=== PATIENT | female | born 1940 | race Caucasian/White ===

== ENCOUNTER 2021-09-17 16:50 | Inpatient (IN) | payer OTHER, MEDICAID ==
[~2021-09-17] VITALS: Ht 160 cm; Wt 84.8 kg
[2021-09-17 16:52] VITALS: BP_SYST 138
[2021-09-17 17:25] LABS: BASOPHILS # (AUTO) 0.1 K/uL (0.0-0.2); BASOPHILS % (AUTO) 0.7 % (0.0-2.0); EOSINOPHILS # (AUTO) 0.5 K/uL (0.0-0.4); EOSINOPHILS % (AUTO) 5.2 % (0.0-4.0); HEMATOCRIT 34.3 % (36-48); HEMOGLOBIN 11.4 g/dL (12.0-16.0); LYMPHOCYTES # (AUTO) 3.4 K/uL (1.0-5.5); MEAN CORPUSCULAR HEMOGLOBIN 32 pg (27-31); MEAN CORPUSCULAR HGB CONC 33 % (32-36); MEAN CORPUSCULAR VOLUME 97 fL (79.0-98.0); MONOCYTES # (AUTO) 0.9 K/uL (0.0-1.0); MONOCYTES % (AUTO) 9.7 % (1.7-9.3); NEUTROPHILS # (AUTO) 4.7 K/uL (1.8-7.7); NEUTROPHILS % (AUTO) 49.4 % (40.0-70.0); PLATELET COUNT (AUTO) 217 K/uL (130-430); RED BLOOD CELL COUNT(AUTO) 3.55 MIL/uL (4.2-6.2); RED CELL DISTRIBUTION WIDTH 14.1 % (9.0-15.0); WHITE BLOOD COUNT (AUTO) 9.6 K/uL (4.8-10.8)
[2021-09-17 17:48] LABS: ANION GAP 8 (5-15); CALCIUM 9.5 mg/dL (8.4-11.0); CHLORIDE 96 mmol/L (98-107); CREATININE 5.52 mg/dL (0.55-1.30); GLUCOSE 126 mg/dL (70-99); POTASSIUM 3.9 mmol/L (3.5-5.1); SODIUM SERUM 135 mmol/L (136-145); UREA NITROGEN, BLOOD 31 mg/dL (8-21)
[2021-09-17 17:57] LABS: ALANINE AMINOTRANSFERASE 16 U/L (12-78); ALBUMIN 2.8 g/dL (3.4-4.8); ASPARTATE AMINOTRANSFERASE 17 U/L (10-37); TOTAL BILIRUBIN 0.1 mg/dL (0.0-1.0)
[2021-09-17] MEDS ORDERED: HYDR-3917 PO (18:10)
[2021-09-17] MEDS ORDERED: REN800 PO (18:10)
[2021-09-17] MEDS ORDERED: SSREG SUBCUT (18:10)
[2021-09-17] MEDS ORDERED: MIDO5TAB4 PO (18:10)
[2021-09-17] MEDS ORDERED: SSNPH SQ (18:10)
[2021-09-17] MEDS ORDERED: SIMV40TA2 PO (18:10)
[2021-09-17] MEDS ORDERED: CARV12.548 PO (18:10)
[2021-09-17] MEDS ORDERED: CALC-1085 PO (18:10)
[2021-09-17] MEDS ORDERED: NIAC250T18 PO (18:10)
[2021-09-17] MEDS ORDERED: INSU100V9 SQ (18:10)
[2021-09-17] MEDS ORDERED: ASPI-1393 PO (18:10)
[2021-09-17] MEDS ORDERED: APIX2.5T PO (18:10)
[2021-09-17] MEDS ORDERED: NPH,100I SQ (18:10)
[2021-09-17] MEDS ORDERED: NOR10 PO (18:10)
[2021-09-17] MEDS ORDERED: DOXA4TAB2 PO (18:10)
[2021-09-17] MEDS ORDERED: LEVO75TA7 PO (18:10)
[2021-09-17] MEDS ORDERED: PANTOPRAZOLE SODIUM 40 MG/VIAL (PROTONIX) IVP ONE (18:15)
[2021-09-17] MEDS ORDERED: NACL 0.9% 1,000 ML IV ONE (18:15)
[2021-09-17] MEDS ORDERED: DEXTROSE 50% JECT 50 ML DISP.SYRIN IVP PRN (20:15)
[2021-09-17] MEDS ORDERED: ALBUTEROL SULFATE 0.083% 2.5 MG/3 ML VIAL.NEB INH PRN (20:15)
[2021-09-17] MEDS ORDERED: IPRATROPIUM BROM 0.5 MG/2.5 ML VIAL.NEB (ATROVENT) INH PRN (20:15)
[2021-09-17 20:18] VITALS: BP_SYST 138
[2021-09-17 21:00] VITALS: BP_SYST 98
[2021-09-17] MEDS: CARVEDILOL 12.5 MG TABLET (COREG) PO SCH (21:00)
[2021-09-17] MEDS: SIMVASTATIN 40 MG TABLET PO SCH (21:00)
[2021-09-17] MEDS: APIXABAN 2.5 MG TABLET PO SCH (21:00)
[2021-09-17] MEDS ORDERED: cefTRIAXone 1 GM VIAL ONE (21:58)
[2021-09-17] MEDS: D5/0.45 NS 1,000 ML IV SCH (22:37)
[2021-09-18] MEDS: PANTOPRAZOLE SODIUM 40 MG/VIAL (PROTONIX) IVP SCH ×4 (00:31→18:27)
[2021-09-18 00:48] LABS: HEMATOCRIT 33.3 % (36-48)
[2021-09-18 01:21] VITALS: BP_SYST 118
[2021-09-18 07:02] LABS: HEMATOCRIT 32.7 % (36-48); HEMOGLOBIN 10.7 g/dL (12.0-16.0)
[2021-09-18 08:30] VITALS: BP_SYST 123
[2021-09-18] MEDS ORDERED: ASPIRIN 81 MG TABLET(ECOTRIN) PO SCH (09:00)
[2021-09-18] MEDS: NIACIN 100 MG TABLET PO SCH (09:00)
[2021-09-18] MEDS: CALCIUM CARBONATE/VITAMIN D3 1 TAB TABLET PO SCH (09:50)
[2021-09-18] MEDS: APIXABAN 2.5 MG TABLET PO SCH (09:50)
[2021-09-18] MEDS: MIDODRINE HCL 5 MG TABLET (PROAMATINE) PO SCH (09:51)
[2021-09-18] MEDS: amLODIPine BESYLATE 10 MG TABLET PO SCH (09:51)
[2021-09-18] MEDS: LEVOTHYROXINE SODIUM 0.075 MG TABLET PO SCH (09:52)
[2021-09-18] MEDS: DOXAZOSIN MESYLATE 2 MG TABLET PO SCH (09:52)
[2021-09-18] MEDS: D5/0.45 NS 1,000 ML IV SCH ×2 (10:03→21:46)
[2021-09-18 13:10] VITALS: BP_SYST 123
[2021-09-18 13:55] LABS: HEMATOCRIT 34.1 % (36-48); HEMOGLOBIN 11.4 g/dL (12.0-16.0)
[2021-09-18 17:47] VITALS: BP_SYST 133
[2021-09-18] MEDS: EPOETIN ALFA-EPBX 4,000 UNITS/ML VIAL SUBCUT SCH (18:28)
[2021-09-18] MEDS: INSULIN REGULAR, HUMAN 100 UNITS/ML, 10 ML VIAL (humuLIN R) SUBCUT PRN (18:40)
[2021-09-18 18:47] LABS: HEMATOCRIT 34.5 % (36-48); HEMOGLOBIN 11.2 g/dL (12.0-16.0)
[2021-09-18 21:44] VITALS: BP_SYST 129
[2021-09-18] MEDS: CARVEDILOL 12.5 MG TABLET (COREG) PO SCH (21:45)
[2021-09-18] MEDS: SIMVASTATIN 40 MG TABLET PO SCH (21:45)
[2021-09-19 00:18] VITALS: BP_SYST 126
[2021-09-19] MEDS: PANTOPRAZOLE SODIUM 40 MG/VIAL (PROTONIX) IVP SCH ×5 (01:32→23:37)
[2021-09-19] MEDS: INSULIN REGULAR, HUMAN 100 UNITS/ML, 10 ML VIAL (humuLIN R) SUBCUT PRN ×4 (01:36→23:45)
[2021-09-19] MEDS: ALBUTEROL SULFATE 0.083% 2.5 MG/3 ML VIAL.NEB INH SCH ×5 (07:00→23:00)
[2021-09-19] MEDS: IPRATROPIUM BROM 0.5 MG/2.5 ML VIAL.NEB (ATROVENT) INH SCH ×5 (07:00→23:00)
[2021-09-19 07:14] LABS: HEMATOCRIT 34.1 % (36-48); HEMOGLOBIN 11.1 g/dL (12.0-16.0)
[2021-09-19 08:13] LABS: ALANINE AMINOTRANSFERASE 13 U/L (12-78); ALBUMIN 2.4 g/dL (3.4-4.8); ANION GAP 10 (5-15); ASPARTATE AMINOTRANSFERASE 13 U/L (10-37); CALCIUM 8.6 mg/dL (8.4-11.0); CHLORIDE 94 mmol/L (98-107); GLUCOSE 202 mg/dL (70-99); PHOSPHORUS 5.1 mg/dL (2.7-4.5); SODIUM SERUM 130 mmol/L (136-145); UREA NITROGEN, BLOOD 46 mg/dL (8-21)
[2021-09-19 08:30] VITALS: BP_SYST 134
[2021-09-19 08:39] LABS: CREATININE 7.53 mg/dL (0.55-1.30)
[2021-09-19 08:57] LABS: TOTAL BILIRUBIN 0.2 mg/dL (0.0-1.0)
[2021-09-19] MEDS: NIACIN 100 MG TABLET PO SCH (09:00)
[2021-09-19] MEDS: BALSAM PERU/CASTOR OIL 56.7 GM OINT...G. TP SCH (09:00)
[2021-09-19] MEDS: D5/0.45 NS 1,000 ML IV SCH (11:15)
[2021-09-19 12:55] VITALS: BP_SYST 130
[2021-09-19 16:50] VITALS: BP_SYST 132
[2021-09-19] MEDS: amLODIPine BESYLATE 10 MG TABLET PO SCH (17:15)
[2021-09-19] MEDS: CALCIUM CARBONATE/VITAMIN D3 1 TAB TABLET PO SCH (17:15)
[2021-09-19] MEDS: DOXAZOSIN MESYLATE 2 MG TABLET PO SCH (17:16)
[2021-09-19] MEDS: LEVOTHYROXINE SODIUM 0.075 MG TABLET PO SCH (17:27)
[2021-09-19 21:28] VITALS: BP_SYST 124
[2021-09-19] MEDS: SIMVASTATIN 40 MG TABLET PO SCH (21:28)
[2021-09-19] MEDS: CARVEDILOL 12.5 MG TABLET (COREG) PO SCH (21:28)
[2021-09-20 00:42] VITALS: BP_SYST 121
[2021-09-20] MEDS: ALBUTEROL SULFATE 0.083% 2.5 MG/3 ML VIAL.NEB INH SCH ×4 (03:00→15:00)
[2021-09-20] MEDS: IPRATROPIUM BROM 0.5 MG/2.5 ML VIAL.NEB (ATROVENT) INH SCH ×4 (03:00→15:00)
[2021-09-20] MEDS: D5/0.45 NS 1,000 ML IV SCH ×2 (05:52→17:45)
[2021-09-20] MEDS: PANTOPRAZOLE SODIUM 40 MG/VIAL (PROTONIX) IVP SCH ×3 (05:52→18:26)
[2021-09-20] MEDS: INSULIN REGULAR, HUMAN 100 UNITS/ML, 10 ML VIAL (humuLIN R) SUBCUT PRN ×3 (06:14→18:15)
[2021-09-20] MEDS ORDERED: ALBUTEROL MDI INHALATION 8 GM INH INH PRN (07:45)
[2021-09-20 08:00] VITALS: BP_SYST 141
[2021-09-20] MEDS: NIACIN 100 MG TABLET PO SCH (09:00)
[2021-09-20] MEDS: CALCIUM CARBONATE/VITAMIN D3 1 TAB TABLET PO SCH (09:48)
[2021-09-20] MEDS: amLODIPine BESYLATE 10 MG TABLET PO SCH (09:49)
[2021-09-20] MEDS: LEVOTHYROXINE SODIUM 0.075 MG TABLET PO SCH (09:51)
[2021-09-20] MEDS: MIDODRINE HCL 5 MG TABLET (PROAMATINE) PO SCH (09:51)
[2021-09-20] MEDS: DOXAZOSIN MESYLATE 2 MG TABLET PO SCH (09:51)
[2021-09-20] MEDS: BALSAM PERU/CASTOR OIL 56.7 GM OINT...G. TP SCH (09:55)
[2021-09-20 11:33] VITALS: BP_SYST 134
[2021-09-20 12:05] VITALS: BP_SYST 134
[2021-09-20] MEDS ORDERED: PRO40 PO (12:17)
[2021-09-20 15:23] VITALS: BP_SYST 113
[2021-09-20] MEDS: EPOETIN ALFA-EPBX 4,000 UNITS/ML VIAL SUBCUT SCH (18:30)
[2021-09-20] MEDS: SIMVASTATIN 40 MG TABLET PO SCH (21:50)
[2021-09-20 21:55] VITALS: BP_SYST 122
[2021-09-20] MEDS: CARVEDILOL 12.5 MG TABLET (COREG) PO SCH (21:57)
[2021-09-21] MEDS: PANTOPRAZOLE SODIUM 40 MG/VIAL (PROTONIX) IVP SCH ×4 (00:08→17:58)
[2021-09-21] MEDS: INSULIN REGULAR, HUMAN 100 UNITS/ML, 10 ML VIAL (humuLIN R) SUBCUT PRN ×4 (00:22→18:01)
[2021-09-21 00:23] VITALS: BP_SYST 124
[2021-09-21 06:30] LABS: BASOPHILS % (AUTO) 0.5 % (0.0-2.0); EOSINOPHILS # (AUTO) 0.5 K/uL (0.0-0.4); EOSINOPHILS % (AUTO) 6.2 % (0.0-4.0); HEMATOCRIT 30.8 % (36-48); HEMOGLOBIN 10.3 g/dL (12.0-16.0); LYMPHOCYTES # (AUTO) 2.6 K/uL (1.0-5.5); MEAN CORPUSCULAR HEMOGLOBIN 32 pg (27-31); MEAN CORPUSCULAR HGB CONC 33 % (32-36); MEAN CORPUSCULAR VOLUME 97 fL (79.0-98.0); MONOCYTES # (AUTO) 0.8 K/uL (0.0-1.0); MONOCYTES % (AUTO) 10.3 % (1.7-9.3); PLATELET COUNT (AUTO) 181 K/uL (130-430); RED BLOOD CELL COUNT(AUTO) 3.17 MIL/uL (4.2-6.2); RED CELL DISTRIBUTION WIDTH 13.9 % (9.0-15.0)
[2021-09-21 07:55] LABS: ANION GAP 10 (5-15); C-REACTIVE PROTEIN QUANT 0.8 mg/dL (0-0.5); CALCIUM 7.9 mg/dL (8.4-11.0); CHLORIDE 96 mmol/L (98-107); GLUCOSE 225 mg/dL (70-99); PHOSPHORUS 3.9 mg/dL (2.7-4.5); POTASSIUM 4.3 mmol/L (3.5-5.1); SODIUM SERUM 132 mmol/L (136-145); UREA NITROGEN, BLOOD 43 mg/dL (8-21)
[2021-09-21 08:00] VITALS: BP_SYST 119
[2021-09-21] MEDS: ALBUTEROL MDI INHALATION 8 GM INH INH SCH ×5 (08:06→22:04)
[2021-09-21 08:10] LABS: CREATININE 8.06 mg/dL (0.55-1.30)
[2021-09-21] MEDS: NIACIN 100 MG TABLET PO SCH ×2 (09:00→18:45)
[2021-09-21] MEDS: CALCIUM CARBONATE/VITAMIN D3 1 TAB TABLET PO SCH (09:48)
[2021-09-21 09:49] LABS: ERYTHROCYTE SEDIMENTATION RATE 53 MM/HR (0-20)
[2021-09-21] MEDS: DOXAZOSIN MESYLATE 2 MG TABLET PO SCH (09:50)
[2021-09-21] MEDS: D5/0.45 NS 1,000 ML IV SCH (09:51)
[2021-09-21] MEDS: amLODIPine BESYLATE 10 MG TABLET PO SCH (09:51)
[2021-09-21] MEDS: LEVOTHYROXINE SODIUM 0.075 MG TABLET PO SCH (09:51)
[2021-09-21] MEDS: BALSAM PERU/CASTOR OIL 56.7 GM OINT...G. TP SCH (09:52)
[2021-09-21 11:24] VITALS: BP_SYST 129
[2021-09-21] MEDS: NORMAL SALINE 5 ML DISP.SYRIN IVF SCH (14:00)
[2021-09-21 15:25] VITALS: BP_SYST 143
[2021-09-21 20:00] VITALS: BP_SYST 146
[2021-09-21] MEDS: SIMVASTATIN 40 MG TABLET PO SCH (20:53)
[2021-09-21] MEDS: CARVEDILOL 12.5 MG TABLET (COREG) PO SCH (20:53)
[2021-09-22] MEDS: NORMAL SALINE 5 ML DISP.SYRIN IVF SCH ×3 (00:10→21:45)
[2021-09-22] MEDS: PANTOPRAZOLE SODIUM 40 MG/VIAL (PROTONIX) IVP SCH ×3 (00:17→23:42)
[2021-09-22] MEDS: INSULIN REGULAR, HUMAN 100 UNITS/ML, 10 ML VIAL (humuLIN R) SUBCUT PRN ×3 (00:17→23:49)
[2021-09-22 00:41] VITALS: BP_SYST 141
[2021-09-22] MEDS: ALBUTEROL MDI INHALATION 8 GM INH INH SCH ×5 (06:00→22:00)
[2021-09-22 06:48] LABS: BASOPHILS # (AUTO) 0.1 K/uL (0.0-0.2); BASOPHILS % (AUTO) 0.6 % (0.0-2.0); EOSINOPHILS # (AUTO) 0.7 K/uL (0.0-0.4); EOSINOPHILS % (AUTO) 7.3 % (0.0-4.0); HEMATOCRIT 30.3 % (36-48); LYMPHOCYTES # (AUTO) 2.9 K/uL (1.0-5.5); MEAN CORPUSCULAR HEMOGLOBIN 32 pg (27-31); MEAN CORPUSCULAR HGB CONC 33 % (32-36); MEAN CORPUSCULAR VOLUME 97 fL (79.0-98.0); MONOCYTES # (AUTO) 0.9 K/uL (0.0-1.0); MONOCYTES % (AUTO) 9.8 % (1.7-9.3); NEUTROPHILS # (AUTO) 4.6 K/uL (1.8-7.7); NEUTROPHILS % (AUTO) 50.3 % (40.0-70.0); PLATELET COUNT (AUTO) 184 K/uL (130-430); RED BLOOD CELL COUNT(AUTO) 3.11 MIL/uL (4.2-6.2); RED CELL DISTRIBUTION WIDTH 13.7 % (9.0-15.0); WHITE BLOOD COUNT (AUTO) 9.2 K/uL (4.8-10.8)
[2021-09-22 08:44] LABS: ALANINE AMINOTRANSFERASE 11 U/L (12-78); ALBUMIN 2.3 g/dL (3.4-4.8); ANION GAP 13 (5-15); ASPARTATE AMINOTRANSFERASE 8 U/L (10-37); C-REACTIVE PROTEIN QUANT 0.8 mg/dL (0-0.5); CALCIUM 7.8 mg/dL (8.4-11.0); CHLORIDE 94 mmol/L (98-107); GLUCOSE 190 mg/dL (70-99); PHOSPHORUS 5.3 mg/dL (2.7-4.5); POTASSIUM 4.9 mmol/L (3.5-5.1); SODIUM SERUM 131 mmol/L (136-145); TOTAL BILIRUBIN 0.2 mg/dL (0.0-1.0); UREA NITROGEN, BLOOD 59 mg/dL (8-21)
[2021-09-22 09:00] LABS: CREATININE 9.91 mg/dL (0.55-1.30)
[2021-09-22] MEDS: MIDODRINE HCL 5 MG TABLET (PROAMATINE) PO SCH (09:00)
[2021-09-22] MEDS: amLODIPine BESYLATE 10 MG TABLET PO SCH (09:00)
[2021-09-22 09:06] LABS: ERYTHROCYTE SEDIMENTATION RATE 46 MM/HR (0-20)
[2021-09-22 11:23] VITALS: BP_SYST 149
[2021-09-22 15:24] VITALS: BP_SYST 110
[2021-09-22 20:00] VITALS: BP_SYST 150
[2021-09-22] MEDS: SIMVASTATIN 40 MG TABLET PO SCH (21:39)
[2021-09-22] MEDS: CARVEDILOL 12.5 MG TABLET (COREG) PO SCH (21:44)
[2021-09-23] VITALS (7 sets, daily range): BP systolic 109–151
[2021-09-23] MEDS: ALBUTEROL MDI INHALATION 8 GM INH INH SCH ×4 (06:00→23:44)
[2021-09-23] MEDS: INSULIN REGULAR, HUMAN 100 UNITS/ML, 10 ML VIAL (humuLIN R) SUBCUT PRN ×3 (06:29→23:56)
[2021-09-23] MEDS: PANTOPRAZOLE SODIUM 40 MG/VIAL (PROTONIX) IVP SCH ×4 (06:30→23:54)
[2021-09-23] MEDS: NORMAL SALINE 5 ML DISP.SYRIN IVF SCH ×3 (06:30→21:58)
[2021-09-23] MEDS: DOXAZOSIN MESYLATE 2 MG TABLET PO SCH (08:28)
[2021-09-23] MEDS: CALCIUM CARBONATE/VITAMIN D3 1 TAB TABLET PO SCH (08:28)
[2021-09-23] MEDS: NIACIN 100 MG TABLET PO SCH (08:28)
[2021-09-23] MEDS: amLODIPine BESYLATE 10 MG TABLET PO SCH (08:29)
[2021-09-23] MEDS: LEVOTHYROXINE SODIUM 0.075 MG TABLET PO SCH (08:29)
[2021-09-23] MEDS: BALSAM PERU/CASTOR OIL 56.7 GM OINT...G. TP SCH (08:31)
[2021-09-23] MEDS ORDERED: APIX2.5T PO (11:36)
[2021-09-23] MEDS: EPOETIN ALFA-EPBX 4,000 UNITS/ML VIAL SUBCUT SCH (17:12)
[2021-09-23] MEDS: CARVEDILOL 12.5 MG TABLET (COREG) PO SCH (21:00)
[2021-09-23] MEDS: SIMVASTATIN 40 MG TABLET PO SCH (21:57)
[2021-09-24 01:45] VITALS: BP_SYST 112
[2021-09-24] MEDS: ALBUTEROL MDI INHALATION 8 GM INH INH SCH ×2 (03:41→07:41)
[2021-09-24] MEDS: PANTOPRAZOLE SODIUM 40 MG/VIAL (PROTONIX) IVP SCH (05:47)
[2021-09-24] MEDS: NORMAL SALINE 5 ML DISP.SYRIN IVF SCH (05:48)
[2021-09-24] MEDS: INSULIN REGULAR, HUMAN 100 UNITS/ML, 10 ML VIAL (humuLIN R) SUBCUT PRN (05:49)
[2021-09-24 08:00] VITALS: BP_SYST 137
[2021-09-24] MEDS: LEVOTHYROXINE SODIUM 0.075 MG TABLET PO SCH (09:38)
[2021-09-24] MEDS: DOXAZOSIN MESYLATE 2 MG TABLET PO SCH (09:40)
[2021-09-24] MEDS: CALCIUM CARBONATE/VITAMIN D3 1 TAB TABLET PO SCH (09:40)
[2021-09-24] MEDS: amLODIPine BESYLATE 10 MG TABLET PO SCH (09:41)
[2021-09-24] MEDS: NIACIN 100 MG TABLET PO SCH (09:42)
[2021-09-24] MEDS: BALSAM PERU/CASTOR OIL 56.7 GM OINT...G. TP SCH (09:42)
== END 2021-09-24 10:50 | DRG 377 ==
LOC: SED 16:50 → STU 18:11
PROVIDERS: ADMIT Internal Medicine Hospice and Palliative Medicine; ATTEND Internal Medicine Hospice and Palliative Medicine
PROC: 5A1D70Z Performance of Urinary Filtration, Intermittent, Less than 6 Hours Per Day (ICD-10-PCS; principal; 2021-09-18)
PROC: 5A1D70Z Performance of Urinary Filtration, Intermittent, Less than 6 Hours Per Day (ICD-10-PCS; 2021-09-19)
PROC: 5A1D70Z Performance of Urinary Filtration, Intermittent, Less than 6 Hours Per Day (ICD-10-PCS; 2021-09-21)
PROC: 5A1D70Z Performance of Urinary Filtration, Intermittent, Less than 6 Hours Per Day (ICD-10-PCS; 2021-09-23)
DX: K92.2 Gastrointestinal hemorrhage, unspecified (principal); U07.1 COVID-19; N18.6 End stage renal disease; J12.82 Pneumonia due to coronavirus disease 2019; I12.0 Hypertensive chronic kidney disease with stage 5 chronic kidney disease or end stage renal disease; E87.1 Hypo-osmolality and hyponatremia; I69.354 Hemiplegia and hemiparesis following cerebral infarction affecting left non-dominant side; E11.65 Type 2 diabetes mellitus with hyperglycemia; E11.22 Type 2 diabetes mellitus with diabetic chronic kidney disease; D63.8 Anemia in other chronic diseases classified elsewhere; E83.51 Hypocalcemia; F03.90 Unspecified dementia, unspecified severity, without behavioral disturbance, psychotic disturbance, mood disturbance, and anxiety; Z99.2 Dependence on renal dialysis; Z88.5 Allergy status to narcotic agent
CPT/HCPCS: 36415; 71045; 80048; 80053; 82962; 83735; 84100; 84484; 85018; 85025; 85651-TC; 86140; 87081; 87635-QW; 93005; 94640; 94664; 94760; 96361; 96374; 97110-GP; 97530-GP; 99285; C9113; G0378; J0696; J1815; J7060; Q5106

== ENCOUNTER 2022-02-06 11:23 | Outpatient (CLI) | payer OTHER, MEDICAID ==
[~2022-02-06 11:23] MED LIST: APIX2.5T PO; ASPI-1393 PO; CALC-1085 PO; CARV12.548 PO; DOXA4TAB2 PO; HYDR-3917 PO; INSU100V9 SQ; LEVO75TA7 PO; MIDO5TAB4 PO; NIAC250T18 PO; NOR10 PO; NPH,100I SQ; PRO40 PO; REN800 PO; SIMV40TA2 PO; SSNPH SQ; SSREG SUBCUT
== END 2022-02-06 18:25 | disposition home or self-care (01) ==
LOC: SCT 11:23
PROVIDERS: ATTEND Family Medicine
DX: R22.1 Localized swelling, mass and lump, neck (principal); J39.8 Other specified diseases of upper respiratory tract; M47.812 Spondylosis without myelopathy or radiculopathy, cervical region
CPT/HCPCS: 70490; 76376

== ENCOUNTER 2022-03-13 08:50 | Outpatient (CLI) | payer OTHER, MEDICAID | END 2022-03-13 17:30 | disposition home or self-care (01) | LOC: SMI 08:50 | PROVIDERS: ATTEND Family Medicine | DX: M47.812 Spondylosis without myelopathy or radiculopathy, cervical region (principal); M85.80 Other specified disorders of bone density and structure, unspecified site; R22.1 Localized swelling, mass and lump, neck; G31.89 Other specified degenerative diseases of nervous system; E04.9 Nontoxic goiter, unspecified | CPT/HCPCS: 70540 ==

== ENCOUNTER 2022-03-25 14:32 | Emergency (ER) | payer OTHER, MEDICAID ==
[~2022-03-25] VITALS: Ht 157.5 cm; Wt 90.7 kg
[2022-03-25 14:32] VITALS: BP_SYST 87
[2022-03-25] MEDS ORDERED: MIDAZOLAM HCL 5 MG/5 ML VIAL ONE (14:40)
[2022-03-25] MEDS ORDERED: methylPREDNISolone SOD SUCC/PF 62.5 MG/ML VIAL ONE (14:48)
[2022-03-25] MEDS ORDERED: NOREPINEPHRINE 4 MG/4 ML VIAL IV ONE (14:59)
== END 2022-03-25 15:10 ==
LOC: SED 14:32
DX: I46.9 Cardiac arrest, cause unspecified (principal); J66.8 Airway disease due to other specific organic dusts; I12.0 Hypertensive chronic kidney disease with stage 5 chronic kidney disease or end stage renal disease; N18.6 End stage renal disease; Z88.5 Allergy status to narcotic agent; Z79.4 Long term (current) use of insulin; Z79.899 Other long term (current) drug therapy
CPT/HCPCS: 99285; J2930; J2250